=== PATIENT | female | born 1990 | race African-American/Black ===

== ENCOUNTER 2016-09-19 22:24 | Observation (INO) | payer MEDICAID ==
[~2016-09-19] VITALS: Ht 167.6 cm; Wt 87.1 kg
[2016-09-19] MEDS ORDERED: FERR-63 PO (23:18)
[2016-09-19] MEDS ORDERED: PREN-88 PO (23:18)
== END 2016-09-20 00:20 | disposition home or self-care (01) ==
LOC: L&D 22:24 → INTOOBSV 22:24
PROVIDERS: ADMIT Obstetrics & Gynecology; ATTEND Obstetrics & Gynecology
DX: O26.893 Other specified pregnancy related conditions, third trimester (principal); R10.30 Lower abdominal pain, unspecified; M54.9 Dorsalgia, unspecified; O62.9 Abnormality of forces of labor, unspecified; Z3A.39 39 weeks gestation of pregnancy
CPT/HCPCS: 99281; G0378

== ENCOUNTER 2016-09-23 13:22 | Observation (INO) | payer MEDICAID ==
[~2016-09-23 13:22] MED LIST: FERR-63 PO; PREN-88 PO
== END 2016-09-23 15:15 | disposition home or self-care (01) ==
LOC: L&D 13:22
PROVIDERS: ADMIT Obstetrics & Gynecology; ATTEND Obstetrics & Gynecology
DX: O48.0 Post-term pregnancy (principal); Z3A.40 40 weeks gestation of pregnancy
CPT/HCPCS: 76815; 76818; 99281; G0378

== ENCOUNTER 2023-11-12 10:22 | Emergency (ER) | payer MEDICAID ==
[~2023-11-12] VITALS: Ht 170.2 cm; Wt 91.0 kg
[2023-11-12 10:29] VITALS: BP 121/63; RESP 18; TEMP 98.3; O2SAT 100
[2023-11-12 10:44] VITALS: PULSE 101
[2023-11-12] MEDS ORDERED: AMOX1TAB16 MT (10:55)
[2023-11-12] MEDS ORDERED: TOPUD MT (10:55)
[2023-11-12] MEDS ORDERED: MED4 MT (10:55)
== END 2023-11-12 11:13 | disposition home or self-care (01) ==
LOC: ER 10:22
DX: H66.92 Otitis media, unspecified, left ear (principal); J06.9 Acute upper respiratory infection, unspecified
CPT/HCPCS: 99283

== ENCOUNTER 2024-12-11 13:53 | Emergency (ER) | payer MEDICAID ==
[~2024-12-11] VITALS: Ht 170.2 cm; Wt 82.0 kg
[~2024-12-11 13:53] MED LIST changes: +AMOX1TAB16 MT; -FERR-63 PO; +METH4TAB95 MT; -PREN-88 PO; +TOPUD MT
[2024-12-11 13:59] VITALS: O2SAT 99
[2024-12-11] MEDS ORDERED: DICL387C TP (15:37)
[2024-12-11] MEDS ORDERED: ACET-2708 MT (15:37)
[2024-12-11] MEDS: ACETAMINOPHEN 500MG TABLET PO ONE (15:59)
[2024-12-11 16:35] VITALS: BP 110/54; PULSE 87; RESP 18; TEMP 36.9; O2SAT 99
== END 2024-12-11 16:39 | disposition home or self-care (01) ==
LOC: ER 13:53
DX: M25.561 Pain in right knee (principal); F12.90 Cannabis use, unspecified, uncomplicated; Z98.890 Other specified postprocedural states
CPT/HCPCS: 73560; 29505; 99283; Z7610